=== PATIENT | female | born 1945 | race Caucasian/White ===

== ENCOUNTER 2021-03-25 17:29 | Inpatient (IN) | payer OTHER ==
[~2021-03-25] VITALS: Ht 167.6 cm; Wt 101.2 kg
[~2021-03-25 17:29] MED LIST: ACTOS 30 MG TAB30 MG PO; CLONIDINE HCL0.2 M2 PO; FLONASE IH; HYDROCODON-ACE1 EACH PO; KLOR-CON 1010 MEQ PO; LASIX 80 MG TAB80 M1 PO; OMEPRAZOLE20 M2 PO; PHOSLO667 MG PO; PROTEIN SUPPLEMENT PO; RENAL SOFTGEL1 MG PO; TRANDATE 200 M200 M1 PO; TYLENOL P.M. E1 EAC3 PO
[2021-03-25 18:23] VITALS: BP 152/93
[2021-03-25] MEDS ORDERED: NYSTATIN15 G3 TOP (20:55)
[2021-03-25] MEDS ORDERED: CALCIUM ACETAT667 MG PO (20:55)
[2021-03-25] MEDS ORDERED: OMEPRAZOLE20 M3 PO (20:56)
[2021-03-25] MEDS ORDERED: LEVOFLOXACIN250 MG PO (20:56)
[2021-03-25] MEDS ORDERED: COLACE100 MG PO (20:57)
[2021-03-25] MEDS ORDERED: NORCO7.5 PO (20:57)
[2021-03-25] MEDS ORDERED: BIOFREEZE118 ML TOP (20:57)
[2021-03-25] MEDS ORDERED: SENNA PLUS TAB1 EACH PO (20:58)
[2021-03-25] MEDS ORDERED: DULCOLAX STOOL100 M1 PO (20:58)
[2021-03-25] MEDS ORDERED: ONDANSETRON HCL4 M2 PO (20:58)
[2021-03-25] MEDS ORDERED: VITAMIN C500 M2 PO (20:59)
[2021-03-25] MEDS ORDERED: GLYCOLAX119 GM PO (20:59)
[2021-03-25] MEDS ORDERED: CULTURELLE KID1 EAC1 PO (20:59)
[2021-03-25] MEDS ORDERED: LIPITOR80 MG PO (20:59)
[2021-03-25] MEDS ORDERED: CHOLECALCIFEROL1 GM PO (21:00)
[2021-03-25] MEDS ORDERED: VITAMIN B-121000 MC2 SUBLING (21:00)
[2021-03-25] MEDS ORDERED: TAPAZOLE5 MG PO (21:01)
[2021-03-25] MEDS ORDERED: ELIQUIS2.5 MG PO (21:01)
[2021-03-25 21:20] LABS: HEMATOCRIT 34.2 % (37.0-47.0); MCH 31.4 pg (26.0-34.0); MCHC 32.1 g/dL (28.0-37.0); MCV 97.8 fL (80.0-100.0); RBC 3.5 mil/uL (4.20-5.00); RDW 14.4 % (10.5-14.5); WBC 6.2 thou/uL (4.0-11.0)
[2021-03-25 21:34] LABS: CALCIUM 9.2 mg/dL (8.5-10.1)
[2021-03-25 21:44] LABS: ALBUMIN 2.8 g/dL (3.4-5.0); TOTAL BILIRUBIN 0.3 mg/dL (0.2-1.0); TOTAL PROTEIN 7.1 g/dL (6.4-8.2)
[2021-03-26 00:47] VITALS: BP 102/69
[2021-03-26 01:17] VITALS: BP 110/42
[2021-03-26 06:08] LABS: CALCIUM 8.6 mg/dL (8.5-10.1); CREATININE 6.4 mg/dL (0.6-1.0); POTASSIUM 4.3 mmol/L (3.5-5.1)
--- NOTE | 2021-03-26 07:21 | EKG ---
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 : 1945 Requested By: Francine Harry Order Number: [id number] MD: Brayan Rossi Measurements Intervals [place] Rate: 78 P: FL: QRS: -26 QRSD: 103 T: 18 QT: 386 QTc: 440 Interpretive Statements Atrial fibrillation Borderline left axis deviation Low voltage, precordial leads Borderline T abnormalities, diffuse leads Compared to ECG 07/20/2010 11:41:44 Low QRS voltage now present T-wave abnormality now present Sinus rhythm no longer present Atrial premature complex(es) no longer present First degree AV block no longer present Electronically Signed On 03-26-2021 7:20:36 CDT by Brayan Rossi [email or web address] <ELECTRONICALLY SIGNED> By: Brayan Rossi MD, FACC 03/26/21719 29 29 Brayan Rossi MD, FAC /EPI
[2021-03-26 07:41] VITALS: BP 153/78
--- NOTE | 2021-03-26 14:40 | NUR ---
PT ADMITTED RELATED TO HEMATURIA, ESRD, RENAL MASSES, CARCINOMA. CM REVIEWED CHART AND SPOKE WITH CARE TEAM. CM MET WITH PT AND SON AT BEDSIDE THIS DAY. PT APPEARED TO BE A&O X4. CM ROLE INTRODUCED. PT INDICATED THAT SHE RESIDES OVER AT [facility]. SHE STATED THAT SHE HAD BEEN THERE LTC AND HAS BEEN THERE SINCE NOVEMBER. PT INDICATED SHE HAS A WC, FWW, ELECTRIC WC FOR USE AT [facility] AND THAT SHE NEEDED ASSISTANCE WITH TRANSFERS. PT DOES DIALYSIS MWF EARLY AT [facility]. PT'S DTR IN LAW DPOA IS GM AT [facility]. CM SPOKE WITH HER AND WITH SON AT BEDSIDE THEY CONFIRMED THE ABOVE. CARE TEAM INDICATED THEY ANTICAPTE THAT PT WILL LIKELY BE HERE OVER THE WEEKEND. THEY CONSULTED UROLOGY, NEPHROLOGY, AND PULM. UROLOGY HAS ALREADY SEEN PT. CM UPDATED [facility], PT, AND FAMILY. CM FOLLOWING REGARDING DC PLANNING.
--- NOTE | 2021-03-26 16:32 | NUR ---
TODAY THIS PT HAS BEEN IN HER ROOM TOLERATING DIALYSIS WELL. SHE HAS A CT SCHEDULED TODAY BUT SHE IS STILL DOING DIALYSIS. SHE HAS HAD SOME STATED PAIN IN WHICH SHE HAS BEEN MEDICATED. SHE HAS OTHERWSIE BEEN TOLERATING HER FLUIDS AND MEDICATIONS WELL AND AWAITS FOR THE NEXT PLAN.
[2021-03-26 16:33] VITALS: BP 148/84
[2021-03-26 20:10] VITALS: BP 138/61
[2021-03-27] VITALS (8 sets, daily range): BP systolic 83–112; BP diastolic 39–50
--- NOTE | 2021-03-27 00:04 | NUR ---
PT WAS TRANSFERRED FROM ED TO RM 450 (4W) AT 0110 THIS AM. PT IS A&OX4. IS STABLE. DENIES PAIN. IS IS ON ROOM AIR. HAS KYAW FISTULA WITH THRILL & BRUIT INTACT, NONI. LABS REVIEWED. VITALS ASSESSED. HAS TENSION SKIN TEAR BETWEEN BOTTOCKS. IS UP WITH 1 ASSIST, GB, WALKER. FALL PRECAUTIONS & HOURLY ROUNDING IMPLEMENTED THIS SHIFT. ADMISSION ASSESSMENT/HISTORY/EDUCATION COMPLETED. PT WAS ORIENTED TO ROOM, UNIT, & CALL LIGHT. PT REPORTED THAT THAT SHE IS UNABLE TO SIGN CONSENT FORMS D/T WEARING PRESCIRPTIVE BIFOCALS THAT SHE LEFT AT HOME. DPOA WILL BE UP TO SIGN CONSENT FORMS & BRING ADVANCED DIRECTIVE & DPOA PAPERWORK. YELLOW ARM BAND & CONSENT FORMS WERE LEFT AT BESIDE TABLE. DAY NURSE WAS AWARE & UPDATED. CONSULTS WERE TO BE CALLED BY DAY NURSE. PT HAS BILAT LE RASH THAT APPEARS OLD CELLULITIS. PT STATED, "MY LEGS HAVE BEEN THIS WAY FOR OVER 18 YEARS, BUT I HAVE NEVER HAD ANY CIRCULATION ISSUES". EDEMA NOTED WELL. CONTINUED TO MONITOR. THROUGH OUT THE NIGHT.
--- NOTE | 2021-03-27 05:18 | NUR ---
PT CARE ASSUMED WITH PT IN W/C WATCHING TV.PT IS A/O X4.PT IS UP WITH X1 ASSIST TO BSC AND TRANSFERS.PT C/O PAIN AND PAIN MANAGED WITH TYLENOL AND NORCO.PT REFUSE CT SCAN AND WANTS TO DO IT THIS MORNING.CT SCAN NOTIFIED.A.V FISTULA ON KIT.WILL CONTINUE TO MONITOR PER POC
[2021-03-27 14:06] LABS: HEMATOCRIT 28.8 % (37.0-47.0); HEMOGLOBIN 9.3 gm/dL (12.0-15.0); MCH 31.6 pg (26.0-34.0); MCHC 32.1 g/dL (28.0-37.0); MCV 98.5 fL (80.0-100.0); RBC 2.93 mil/uL (4.20-5.00); RDW 14.7 % (10.5-14.5); WBC 4.9 thou/uL (4.0-11.0)
--- NOTE | 2021-03-27 15:24 | NUR ---
TODAY THIS PT HAS HAD SOME STATED PAIN IN WHICH SHE HAS BEEN MEDICATED. SHE HAD A BOUT WITH LOW B/P THIS MORNING AND THE PHYSICIAN WAS CALLED AND HER CLONIDINE WAS D/C AND A 250 ML BOLUS WAS GIVEN AND HER B/P IS BACK WITHIN NORMAL LIMITS. THE PATIENT WAS ASKED ABOUT HER CLONIDINE DOSAGE AND SHE STATED THAT SHE DOESN'T TAKE THIS MED ANYMORE AND SHE HASN'T FOR A YEAR. SHE HAS REFUSED HER CT SCAN AND STATED THAT SHE WILL GO TOMORROW WITH HER DAUGHTER. SHE IS OTHERWISE AWAITING FOR THE NEXT PLAN.
[2021-03-28] VITALS (11 sets, daily range): BP systolic 101–146; BP diastolic 45–81
[2021-03-28 03:06] LABS: HEP B SURFACE Ab(ANTI-HBS Non Reactive (()); HEPATITIS B SURFACE AG Negative (Negative)
--- NOTE | 2021-03-28 07:54 | NUR ---
Pt. c/o arthritis pain all over and po tylenol was given (see emar) with some relief noted. Bp continues to be low (see vs). Pt. was crying out in pain later and Devika BLAKE called and notified. Fentanyl was ordered, but unable to give due to allergy from pharmacy. Pt. soon rested quietly. Bed alarm is on.
--- NOTE | 2021-03-28 14:15 | NUR ---
ASSUMED PT CARE THIS AM. PT A&OX4, ABLE TO MAKE ALL NEEDS KNOWN. PATIENT REPORTING GENERALIZED PAIN, MEDICATED PER EMAR AND SLEEPING UPON REASSESSMENT. PATIENT HAD A CYSTOSCOPY PERFORMED THIS DAY, RETURNED TO FLOOR WITH CBI INFUSING. PATIENT ON ROOM AIR. IV REMAINS PATENT. PATIENT REMAINS ON TELEMETRY. FALL PRECAUTIONS ARE IN PLACE, CALL LIGHT WITHIN REACH.
[2021-03-29 00:17] VITALS: BP 96/38
--- NOTE | 2021-03-29 02:54 | NUR ---
PT CARE ASSUMED WITH PT IN BED SLEEPING.PT IS A/O X4.PT IS UP WITH X1 ASSIST.PT ON CBI RUNNING SLOWING WITH GOOD OUTPUT.PT IS ACCUCHECK ACHS.PT C/O GENERALIZED PAIN AND ASKED FOR TYLENOL FOR PAIN MANAGEMENT.IV ACCESS IN RT AC AND DIALYSIS ACCESS KIT AV FISTULA.WILL CONTINUE TO MONITOR PER POC
[2021-03-29 04:25] VITALS: BP 121/57
[2021-03-29 07:43] VITALS: BP 110/44
[2021-03-29 10:27] LABS: HEMATOCRIT 30.5 % (37.0-47.0); HEMOGLOBIN 10.1 gm/dL (12.0-15.0); MCH 32.4 pg (26.0-34.0); MCHC 33.1 g/dL (28.0-37.0); MCV 97.7 fL (80.0-100.0); RBC 3.12 mil/uL (4.20-5.00); RDW 14.7 % (10.5-14.5)
--- NOTE | 2021-03-29 10:48 | NUR ---
Assess due to notification of pt with sacral ulcer, wound care consult pending. Hx DM, ESRD/dailysis, cervical cancer. Admit with renal and pulmonary massess, workup in progress. Pt voices fair appetite but does have specific food preferences. Obtained lunch and dinner preferences. Pt requesting multiple items not allowed on renal restriction (orange juice, extra milk, potatoes, salty foods). Encouraged alterative choices and pt verbalized understanding. Wt obese, no significant changes. BG controlled. Low nutrition risk
--- NOTE | 2021-03-29 11:40 | NUR ---
ASSUMED PT CARE THIS AM. PT A&OX4, ABLE TO MAKE NEEDS KNOWN. PATIENT REPORTING GENERALIZED PAIN, MEDICATED PER EMAR. PATIENT RECEIVING DIALYSIS THIS DAY. PATIENT HAS A PATENT IV, SALINE LOCKED. MEDICATIONS TAKEN WITHOUT ISSUE THIS AM. PATIENT ON ROOM AIR. PATIENT REMAINS ON TELEMETRY. FALL PRECAUTIONS ARE IN PLACE, CALL LIGHT WITHIN REACH.
[2021-03-29 14:29] VITALS: BP 145/37
[2021-03-29 20:34] VITALS: BP 121/41
[2021-03-30 00:04] VITALS: BP 107/40
--- NOTE | 2021-03-30 03:20 | NUR ---
PT CARE ASSUMED WITH PT IN BED RESTING.PT IS A/O X4.PT IS UP WITH X1 ASSIST WITH WALKER AND BEDSIDE COMMODE.PT IS ACCUCHECK ACHS.PT DIALYSIS ACCESS ON KIT AV FISTULA.PT ON ROOM AIR.PT APPEARED TO BE IN NO DISTRESS.WILL CONTINUE TO MONITOR PER POC
[2021-03-30 04:12] VITALS: BP 105/48
[2021-03-30 07:19] VITALS: BP 105/46
[2021-03-30] MEDS ORDERED: FENTANYL1 EACH TRANSDERM (09:12)
[2021-03-30] MEDS ORDERED: NORCO7.5 PO (09:13)
--- NOTE | 2021-03-30 10:56 | NUR ---
CARE TEAM INDICATED THAT PT IS MEDICALLY STABLE TO DC BACK TO [facility] THIS DAY. PT AND FAMILY ARE INTERESTED IN PT RETURNING SKILLED FOR THERAPY SERVICES. CM FAXED ORDERS. CHART COPY MADE. TRANSPORT ARRANGED FOR 12:30-1300 VIA WC VAN PT HAS HER OWN WC. PT AND DTR IN LAW/DPOA ARE AWARE AND AGREEABLE. NO OTHER CM INTERVENTION INDICATED. CASE CLOSED.
[2021-03-30 11:20] VITALS: BP 105/43
--- NOTE | 2021-03-30 12:25 | NUR ---
ASSUMED PATIENT CARE THIS AM. PATIENT A&OX4, ABLE TO MAKE NEEDS KNOWN. PATIENT REPORTING GENERALIZED PAIN, DENIES NEEDING PAIN MEDICATION. PATIENT WITH A LEFT UPPER ARM FISTULA. MEDICATIONS TAKEN WITHOUT ISSUE. PATIENT UP WITH ASSIST AROUND ROOM. PATIENT ON ROOM AIR. PATIENT REFUSED WOUND PICTURE THIS DAY. FALL PRECAUTIONS ARE IN PLACE, CALL LIGHT WITHIN REACH. PATIENT DISCHARGED OFF UNIT AT 1228, BELONGINGS SENT WITH PATIENT.
--- NOTE | 2021-04-01 10:08 | PATH ---
[facility] [address] [place] [address] PATHOLOGY RPT PROCEDURE Name: VANCE SCOTTYCE Darlene Room #: 450-P [facility] IN .R.#: [id number] Admission: 03/25/21 Date of : 41 Discharge: 03/30/21 Report #: [id number] Path Case #: [id number] [facility] Accession Number: [id number] . 01 Material submitted: . bladder - BLADDER BIOPSY . 01 Clinical history: . CYSTOSCOPY TUR, BLADDER NECK (TUMOR) GROSSY MATERIAL CHRONIC CYSTITIS . 02 Diagnosis: Urothelial mucosa, bladder (neck), biopsy: - Moderate chronic cystitis associated with congested lamina propria vessels. - Overlying urothelium showing reactive hyperplasia. - Negative for dysplasia or malignancy. . (IUV:mml; 03/30/2021) QLM 03/30/2021 1319 Local . 02 Comment: Dr. Carisa Tillman has seen professional healthcare representative slides of this case and concurs with the diagnosis rendered. . (IUV:mml; 03/30/2021) . 02 Electronically signed: . Sharon Raman MD, Pathologist NPI- [id number] . 01 Gross description: . The specimen is received in formalin, labeled "Mirian Scott, bladder biopsy". Received is a single segment of pale greene, rubbery tissue measuring 0.5 cm in maximum dimensions. The specimen is entirely submitted in cassette A1. ([facility]; 03/29/2021) NRI/NRI 03/29/2021 2155 Local . 02 Pathologist provided ICD-10: N30.20, N32.9 . 02 CPT . 253928 Specimen Comment: A courtesy copy of this report has been sent to [phone], [id number], [place] [address] PATHOLOGY RPT PROCEDURE Name: MIRIAN SCOTT Room #: 450-P [facility] IN [facility]#: [id number] Admission: 03/25/21 Date of : 41 Discharge: 03/30/21 Report #: [id number] Path Case #: [id number] Specimen Comment: [id number], Specimen Comment: Report sent to , DR BRAGA / DR GOULD Specimen Comment: A duplicate report has been generated due to demographic updates. Performed at: [address] [facility] [address], [place], [place] [id number] MD Christo Ansari MD Phone: [phone] Performed at: [address] [facility] [id number] MD Sharon Raman MD Phone: [phone]
== END 2021-03-30 12:53 | DRG 668 ==
LOC: ER 17:29 → 4W 23:54 → EROBS 23:54 → 4W 03-26 00:56
PROVIDERS: Hospitalist; Internal Medicine Nephrology; Nurse Practitioner Family; ADMIT Internal Medicine; ATTEND Internal Medicine
DX: N30.91 Cystitis, unspecified with hematuria (principal); N18.6 End stage renal disease; C78.6 Secondary malignant neoplasm of retroperitoneum and peritoneum; C80.0 Disseminated malignant neoplasm, unspecified; E44.0 Moderate protein-calorie malnutrition; I12.0 Hypertensive chronic kidney disease with stage 5 chronic kidney disease or end stage renal disease; N28.9 Disorder of kidney and ureter, unspecified; R91.1 Solitary pulmonary nodule; K21.9 Gastro-esophageal reflux disease without esophagitis; E78.5 Hyperlipidemia, unspecified; E11.22 Type 2 diabetes mellitus with diabetic chronic kidney disease; I87.8 Other specified disorders of veins; I89.0 Lymphedema, not elsewhere classified; I77.0 Arteriovenous fistula, acquired; R53.81 Other malaise; G89.29 Other chronic pain; K59.00 Constipation, unspecified; Z20.822 Contact with and (suspected) exposure to COVID-19; I25.10 Atherosclerotic heart disease of native coronary artery without angina pectoris; E66.01 Morbid (severe) obesity due to excess calories; Z68.36 Body mass index [BMI] 36.0-36.9, adult; Z85.43 Personal history of malignant neoplasm of ovary; Z90.711 Acquired absence of uterus with remaining cervical stump; Z90.710 Acquired absence of both cervix and uterus; Z79.01 Long term (current) use of anticoagulants; Z85.42 Personal history of malignant neoplasm of other parts of uterus; Z85.51 Personal history of malignant neoplasm of bladder; Z91.041 Radiographic dye allergy status
CPT/HCPCS: 10045; 32100; 50101; 56815; 57006; 57160; 58580; 62110; 62900; 70005